=== PATIENT | female | born 1950 | race Caucasian/White ===

== ENCOUNTER 2017-10-21 10:59 | Outpatient (CLI) | payer OTHER ==
[~2017-10-21 10:59] MED LIST: CITRACAL + BON1 EACH PO; DIOVA PO; DOLOGEN CAPLET1 EACH PO; LASIX20 MG PO; LIPITOR40 MG PO; MEDROLPACK PO; METFORMIN HCL1000 M1 PO; SYNTHROID112 MCG PO; SYNTHROID125 MCG PO; [UNRECOGNIZED DRUG - OTHER]
== END 2017-10-21 11:13 | disposition home or self-care (01) ==
LOC: LAB 10:59
DX: K29.00 Acute gastritis without bleeding (principal); Z01.812 Encounter for preprocedural laboratory examination

== ENCOUNTER 2017-10-24 10:21 | Day surgery (SDC) | payer OTHER | END 2017-10-24 14:30 | disposition home or self-care (01) | LOC: AMB-ENDOS 10:21 | DX: K64.1 Second degree hemorrhoids (principal) ==

== ENCOUNTER 2018-03-04 05:35 | Day surgery (SDC) | payer OTHER ==
[2018-03-04] MEDS ORDERED: PROTONIX40 MG PO (12:17)
[2018-03-04] MEDS ORDERED: NEURONTIN300 MG PO (12:17)
== END 2018-03-04 15:25 | disposition home or self-care (01) ==
LOC: CIR.AMB 05:35
DX: K80.10 Calculus of gallbladder with chronic cholecystitis without obstruction (principal)

== ENCOUNTER 2018-06-04 10:44 | Outpatient (CLI) | payer OTHER ==
[~2018-06-04 10:44] MED LIST changes: +NEURONTIN300 MG PO; +PROTONIX40 MG PO
== END 2018-06-04 10:57 | disposition home or self-care (01) ==
LOC: SONOGRAMA 10:44
DX: E04.1 Nontoxic single thyroid nodule (principal)

== ENCOUNTER 2019-03-08 14:15 | Outpatient (CLI) | payer OTHER | END 2019-03-08 14:52 | disposition home or self-care (01) | LOC: RAD 14:15 → MAMO-SONO 14:45 → RAD 14:52 | DX: M25.512 Pain in left shoulder (principal); M25.551 Pain in right hip; M25.552 Pain in left hip; M25.561 Pain in right knee; M25.562 Pain in left knee ==

== ENCOUNTER 2019-03-24 09:10 | Outpatient (CLI) | payer OTHER | END 2019-03-24 09:20 | disposition home or self-care (01) | LOC: EKG 09:10 | DX: R07.89 Other chest pain (principal); I10 Essential (primary) hypertension ==

== ENCOUNTER 2019-03-29 07:09 | Outpatient (CLI) | payer OTHER | END 2019-03-29 07:21 | disposition home or self-care (01) | LOC: RAD 07:09 | DX: M79.641 Pain in right hand (principal); M25.561 Pain in right knee; M25.562 Pain in left knee ==

== ENCOUNTER 2023-04-29 06:10 | Day surgery (SDC) | payer OTHER ==
[~2023-04-29] VITALS: Ht 167.6 cm; Wt 124.3 kg
[~2023-04-29 06:10] MED LIST changes: +COZAAR50 MG PO; +METFOR PO; +SYNTHROID137 MCG PO; +[UNRECOGNIZED DRUG - OTHER] PO; +[UNRECOGNIZED DRUG - OTHER] PO
== END 2023-04-29 15:45 | disposition home or self-care (01) ==
LOC: CIR.AMB 06:10
PROVIDERS: ATTEND Orthopaedic Surgery Hand Surgery
DX: M18.11 Unilateral primary osteoarthritis of first carpometacarpal joint, right hand (principal); M19.041 Primary osteoarthritis, right hand; E11.9 Type 2 diabetes mellitus without complications; E78.00 Pure hypercholesterolemia, unspecified; Z20.822 Contact with and (suspected) exposure to COVID-19; I10 Essential (primary) hypertension

== ENCOUNTER 2023-05-13 13:30 | Emergency (ER) | payer OTHER ==
[~2023-05-13] VITALS: Ht 167.6 cm; Wt 113.4 kg
== END 2023-05-13 21:40 | disposition home or self-care (01) ==
LOC: ER 13:31
DX: M25.561 Pain in right knee (principal)

== ENCOUNTER 2023-05-14 11:49 | Outpatient (CLI) | payer OTHER | END 2023-05-14 11:53 | disposition home or self-care (01) | LOC: MRI 11:49 | PROVIDERS: ATTEND Orthopaedic Surgery | DX: S83.200A Bucket-handle tear of unspecified meniscus, current injury, right knee, initial encounter (principal) | CPT/HCPCS: 73721 ==